=== PATIENT | female | born 1980 | race African-American/Black ===

== ENCOUNTER 2021-04-10 18:22 | Emergency (ER) | payer MEDICAID, OTHER ==
[~2021-04-10] VITALS: Ht 165.1 cm; Wt 104.0 kg
[~2021-04-10 18:22] MED LIST: LEVOTHYROXINE
[2021-04-10] MEDS ORDERED: ONDANSETRON HCL 4MG/2ML INJ IV STA (18:50)
[2021-04-10] MEDS ORDERED: ACETAMINOPHEN 325MG TABLET PO STA (18:50)
[2021-04-10] MEDS ORDERED: SODIUM CHLORIDE 0.9% 1,000 ML IV ONE (19:00)
[2021-04-10] MEDS ORDERED: MORPHINE SULFATE 4 MG/ML CPJ (NOT FOR IM USE) IV ONE (19:30)
[2021-04-10 19:44] LABS: BASOPHILS % 0.4 % (0.0-2.0); EOSINOPHILS % 2.8 % (0.0-5.0); HEMATOCRIT. 35.8 % (36.0-48.0); LYMPHOCYTES % 24.4 % (20.0-50.0); MEAN CORPUSCULAR HEMOGLOBIN 30.1 pg (28.0-32.0); MEAN CORPUSCULAR VOLUME 89.8 fL (81.0-99.0); MEAN PLATELET VOLUME 8.4 fl (7.4-10.4); NEUTROPHILS % 65.4 % (40.0-76.0); PLATELET 264 x1000/uL (130-400); RED BLOOD CELL COUNT 3.98 mill/uL (4.2-5.4); RED CELL DISTRIBUTION WIDTH 13.4 % (11.6-14.6)
[2021-04-10 19:51] LABS: CHLORIDE 108 mEq/L (98-107)
[2021-04-10 19:53] LABS: HCG SCREEN NEGATIVE
[2021-04-10 19:54] LABS: PROTHROMBIN TIME 10.5 sec (9.6-11.0)
[2021-04-10 19:55] LABS: ETHANOL BLOOD < 10 mg/dL
[2021-04-10 21:34] LABS: METHADONE URINE SCREEN NEGATIVE (NEGATIVE)
[2021-04-10 21:35] LABS: *AMPHETAMINES SCREEN URINE NEGATIVE (NEGATIVE); *BARBITURATES SCREEN URINE NEGATIVE (NEGATIVE); *BENZODIAZEPINES SCREEN URINE NEGATIVE (NEGATIVE); *COCAINE SCREEN URINE NEGATIVE (NEGATIVE); CANNABINOID URINE SCREEN NEGATIVE (NEGATIVE); PHENCYCLIDINE URINE SCREEN NEGATIVE (NEGATIVE)
[2021-04-10 21:38] LABS: OPIATES URINE SCREEN PRESUMTIVE POSITIVE (NEGATIVE)
[2021-04-10 21:57] LABS: CLARITY URINE CLEAR (CLEAR); COLOR URINE YELLOW (YELLOW); KETONES URINE NEGATIVE (NEGATIVE); LEUKOCYTE ESTERASE URINE NEGATIVE (NEGATIVE); NITRITE URINE NEGATIVE (NEGATIVE); OCCULT BLOOD URINE NEGATIVE (NEGATIVE); PROTEIN URINE NEGATIVE (NEGATIVE); SPECIFIC GRAVITY URINE 1.006 (1.005-1.030)
[2021-04-10] MEDS ORDERED: NAPR-681 MT (22:32)
[2021-04-10 22:50] VITALS: BP 110/61
== END 2021-04-10 23:20 | disposition home or self-care (01) ==
LOC: ER 18:22
DX: D25.9 Leiomyoma of uterus, unspecified (principal); F32.9 Major depressive disorder, single episode, unspecified; E03.9 Hypothyroidism, unspecified; F17.210 Nicotine dependence, cigarettes, uncomplicated; Z98.890 Other specified postprocedural states
CPT/HCPCS: 36415; 74176; 76856; 80053; 80305; 80320; 81003; 81025; 83690; 84703; 85025; 85610; 96361; 96374; 96375; 99285; J2270; J2405; J7030; G0480

== ENCOUNTER 2024-03-16 12:28 | Emergency (ER) | payer MEDICAID ==
[~2024-03-16] VITALS: Ht 165.1 cm; Wt 90.0 kg
[~2024-03-16 12:28] MED LIST changes: +NAPR-681 MT
[2024-03-16 12:30] VITALS: BP 167/90; PULSE 100; RESP 16; O2SAT 99
[2024-03-16 13:00] VITALS: TEMP 98.5
[2024-03-16] MEDS: LIDOCAINE HCL/EPINEPHRINE 1%-EPI 1:100,000 20 ML VIAL INFIL ONE (13:00)
[2024-03-16] MEDS: ACETAMINOPHEN 500MG TABLET PO ONE (13:00)
[2024-03-16] MEDS: BACITRACIN ZINC OINT UDPKT TOP ONE (13:00)
[2024-03-16] MEDS ORDERED: LIDOCAINE HCL/EPINEPHRINE 1%-EPI 1:100,000 20 ML VIAL INFIL NR (16:30)
== END 2024-03-16 17:15 | disposition home or self-care (01) ==
LOC: ER 12:28
DX: S01.81XA Laceration without foreign body of other part of head, initial encounter (principal); F32.A Depression, unspecified; E03.9 Hypothyroidism, unspecified; F10.20 Alcohol dependence, uncomplicated; Z98.890 Other specified postprocedural states; Y08.89XA Assault by other specified means, initial encounter; Y93.89 Activity, other specified; Y92.89 Other specified places as the place of occurrence of the external cause; Y99.8 Other external cause status; Y90.9 Presence of alcohol in blood, level not specified
CPT/HCPCS: 81025; 70486; 12002; 99284; J3490; Z7610 ×3

== ENCOUNTER 2024-03-28 12:50 | Emergency (ER) | payer MEDICAID ==
[~2024-03-28] VITALS: Ht 175.3 cm; Wt 109.0 kg
[2024-03-28 12:55] VITALS: O2SAT 96
[2024-03-28 13:30] VITALS: BP 131/82; PULSE 100; RESP 20; TEMP 98.5
== END 2024-03-28 14:05 | disposition home or self-care (01) ==
LOC: ER 13:36
DX: S01.81XD Laceration without foreign body of other part of head, subsequent encounter (principal); F32.9 Major depressive disorder, single episode, unspecified; E03.9 Hypothyroidism, unspecified; Z98.890 Other specified postprocedural states; X58.XXXD Exposure to other specified factors, subsequent encounter
CPT/HCPCS: 99281